=== PATIENT | male | born 1990 | race Asian ===

== ENCOUNTER 2022-08-14 09:49 | Emergency (ER) | payer OTHER ==
[~2022-08-14] VITALS: Ht 182.9 cm; Wt 100.0 kg
[~2022-08-14 09:49] MED LIST: UNRESOLVED CLARIFICATION ENTRY XX SCH
[2022-08-14] MEDS ORDERED: NS 1,000 ML IV ONE (10:45)
[2022-08-14] MEDS ORDERED: UNRESOLVED CLARIFICATION ENTRY XX STA (10:45)
[2022-08-14] MEDS ORDERED: KETOROLAC 30 MG/ML 1ML VIAL IV ONE (10:45)
[2022-08-14] MEDS ORDERED: ONDANSETRON 4MG 2ML VIAL IV ONE (10:45)
[2022-08-14 11:36] LABS: BASO # 0.1 10^3/uL (0.0-0.2); BASO % 0.5 % (0.0-1.0); EOS # 0.1 10^3/uL (0.0-0.5); EOS % 0.5 % (0.0-3.0); HEMATOCRIT 54.8 % (42.0-52.0); LYMPH # 2.4 10^3/uL (1.5-5.0); LYMPH % 18.5 % (24.0-44.0); MEAN CORPUSCULAR HEMOGLOBIN 29.5 pg (27.0-33.0); MEAN CORPUSCULAR HGB CONC 33.9 g/dl (32.0-36.5); MONO # 0.5 10^3/uL (0.0-0.8); MONO % 4.1 % (2.0-8.0); NEUTROPHILS # 9.8 10^3/uL (1.5-8.5); NEUTROPHILS % 74.9 % (36.0-66.0); PLATELET COUNT, AUTOMATED 285 10^3/uL (150-450); WHITE BLOOD COUNT 13.1 10^3/uL (4.0-10.0)
[2022-08-14 11:51] LABS: LIPASE 30 U/L (12-53)
[2022-08-14 11:52] LABS: HEMOGLOBIN 18.6 g/dl (13.5-17.5)
[2022-08-14 11:53] LABS: ALBUMIN 4.1 G/DL (3.2-5.2); ALKALINE PHOSPHATASE 64 U/L (46-116); ALT/SGPT 72 U/L (7.0-40); AST/SGOT 34 U/L (<34); BILIRUBIN,TOTAL 0.4 MG/DL (0.3-1.2); BLOOD UREA NITROGEN 17 MG/DL (9-23); CALCIUM LEVEL 9.3 MG/DL (8.5-10.1); CARBON DIOXIDE LEVEL 25 MMOL/L (20-31); CHLORIDE LEVEL 103 MMOL/L (98-107); CREATININE FOR GFR 0.81 MG/DL (0.70-1.30); GLOMERULAR FILTRATION RATE > 60.0 (>60); GLUCOSE, FASTING 98 MG/DL (60-100); POTASSIUM SERUM 4.5 MMOL/L (3.5-5.1); SODIUM LEVEL 136 MMOL/L (136-145); TOTAL PROTEIN 7.8 G/DL (5.7-8.2)
[2022-08-14] MEDS ORDERED: ONDA4TAB6 PO (12:09)
[2022-08-14 12:18] VITALS: BP 128/78
== END 2022-08-14 12:24 | disposition home or self-care (01) ==
LOC: M ED 09:49 → EDBD 09:49 → M ED 12:24
DX: R10.9 Unspecified abdominal pain (principal); R11.0 Nausea; K58.9 Irritable bowel syndrome, unspecified; Z79.83 Long term (current) use of bisphosphonates
CPT/HCPCS: 80053; 83690; 85025; 96361; 96374; 99284; J1885; J2405